=== PATIENT | male | born 1960 | race Caucasian/White ===

== ENCOUNTER 2018-05-30 08:24 | Inpatient (IN) | payer OTHER ==
[~2018-05-30] VITALS: Ht 172.7 cm; Wt 89.8 kg
--- NOTE | 2018-05-30 08:46 | NUR ---
RADIOLOGY AT BEDSIDE FOR CHEST XRAY.
--- NOTE | 2018-05-30 08:56 | NUR ---
HOME DESIGNER AT BEDSIDE FOR BLOOD DRAW.
--- NOTE | 2018-05-30 09:01 | NUR ---
DR ROY AT BEDSIDE FOR EVAL.
[2018-05-30 09:12] LABS: BASOPHILS # (AUTO) 0.1 /CMM (0.0-0.2); BASOPHILS % (AUTO) 1.2 % (0.0-2.0); HEMATOCRIT 46 % (39-51); HEMOGLOBIN 14.6 g/dL (13.5-17.5); LYMPHOCYTES # (AUTO) 1.3 /CMM (0.8-4.8); LYMPHOCYTES % (AUTO) 15.5 % (20.0-44.0); MEAN CORPUSCULAR HGB CONC 32 g/dl (31.0-36.0); MEAN CORPUSCULAR VOLUME 83 fL (80-96); MONOCYTES # (AUTO) 0.7 /CMM (0.1-1.30); MONOCYTES % (AUTO) 8.3 % (2.0-12.0); NEUTROPHILS # (AUTO) 6.2 /CMM (1.8-8.9); PLATELET COUNT (AUTO) 250 /CMM (150-450); RED BLOOD CELL COUNT(AUTO) 5.53 MIL/uL (4.5-6.0); WHITE BLOOD COUNT (AUTO) 8.4 K/uL (4.3-11.0)
[2018-05-30 09:17] LABS: CALCIUM, SERUM 8.9 mg/dL (8.5-10.1); CARBON DIOXIDE 24 mmol/L (21-32); CHLORIDE 107 mmol/L (98-107); CREATININE 1.7 mg/dL (0.6-1.3); GLUCOSE 132 mg/dL (74-106); POTASSIUM 4.9 mmol/L (3.5-5.1); SODIUM SERUM 140 mmol/L (136-145); UREA NITROGEN, BLOOD 38 mg/dL (7-18)
[2018-05-30 09:30] LABS: B-TYPE NATRIURETIC PEPTIDE 7496 PG/ML (0-125)
[2018-05-30] MEDS ORDERED: FUROSEMIDE 40 MG/4 ML VIAL IV ONE (10:00)
[2018-05-30] MEDS ORDERED: METOPROLOL TARTRATE INJ 5 MG/5 ML AMPUL IVP PRN ×2 (10:00→15:30)
--- NOTE | 2018-05-30 10:04 | NUR ---
CTPA CANCELLED DUE TO CREA 1.7, VQ SCAN WILL BE ORDERED INSTEAD, DANIEL IN CT INFORMED
[2018-05-30] MEDS ORDERED: FUROSEMIDE 40 MG/4 ML VIAL ONE (10:14)
[2018-05-30] MEDS ORDERED: METOPROLOL TARTRATE INJ 5 MG/5 ML AMPUL ONE (10:14)
[2018-05-30] MEDS ORDERED: METO-358 PO (10:26)
[2018-05-30] MEDS ORDERED: OLME20TA23 PO (10:26)
[2018-05-30] MEDS ORDERED: APIX5TAB PO (10:26)
[2018-05-30] MEDS ORDERED: ONDANSETRON HCL/PF 4 MG/2 ML VIAL IVP PRN (11:00)
[2018-05-30] MEDS ORDERED: MAGNESIUM HYDROXIDE 30 ML UDC PO PRN (11:00)
[2018-05-30] MEDS ORDERED: ACETAMINOPHEN 325 MG TABLET PO PRN (11:00)
[2018-05-30] MEDS ORDERED: Z GUARD REMEDY 2 OZ OINT TP PRN (11:00)
[2018-05-30] MEDS ORDERED: ZOLPIDEM TARTRATE 5 MG TABLET PO PRN (11:00)
[2018-05-30] MEDS ORDERED: MAG HYDROX/AL HYDROX/SIMETH 30 ML UDC PO PRN (11:00)
[2018-05-30] MEDS ORDERED: MORPHINE SULFATE INJ 2 MG/ML DISP.SYRIN IV PRN (11:00)
[2018-05-30] MEDS ORDERED: HYDROCODONE/APAP 5/325MG 1 EACH TABLET PO PRN (11:00)
[2018-05-30] MEDS ORDERED: ENOXAPARIN SODIUM 40 MG/0.4 ML DISP.SYRIN SQ SCH (11:00)
--- NOTE | 2018-05-30 11:47 | NUR ---
GOT BED 109
[2018-05-30 12:00] VITALS: BP 138/91
--- NOTE | 2018-05-30 12:02 | NUR ---
REPORT GIVEN TO LUIS. PT AWAITING TRANSFER TO FLOOR.
[2018-05-30] MEDS ORDERED: METOPROLOL SUCCINATE 50 MG TAB.SR.24H PO SCH (12:03)
[2018-05-30 12:20] VITALS: BP 138/91
--- NOTE | 2018-05-30 12:20 | NUR ---
RN NOTES RECEIVED PATIENT IN BED ALERT, AWAKE, ORIENTED X4 WITH BREATHING NORMAL, EVEN AND NORMAL. NO SOB NOTED. NO ACUTE DISTRESS NOTED. ON ROOM AIR, SATURATING WELL. TELE MONITOR REVEALS UNCONTROLLED A-FIB, WU=864. IV RAC IS PATENT AND INTACT, NO INFILTRATION NOTED. BOWEL SOUND PRESENT. PULSES PRESENT. KEPT CLEAN, DRY AND COMFORTABLE. ALL NEEDS ATTENDED. SAFETY MEASURE OBSERVED. CALL LIGHT WITH IN REACH. WILL CONT TO MONITOR.
[2018-05-30] MEDS ORDERED: HYDROMORPHONE INJ 2 MG/ML DISP.SYRIN IV PRN (12:30)
[2018-05-30] MEDS ORDERED: HYDROMORPHONE INJ 0.5 MG/0.5 ML SYRINGE IV PRN (12:30)
[2018-05-30 16:00] VITALS: BP 134/99
[2018-05-30] MEDS ORDERED: APIXABAN 5 MG TABLET PO SCH (17:00)
[2018-05-30] MEDS: APIXABAN 5 MG TABLET PO SCH (17:56)
[2018-05-30] MEDS: METOPROLOL TARTRATE 50 MG TABLET PO SCH ×2 (18:00→23:01)
--- NOTE | 2018-05-30 18:13 | NUR ---
RN NOTES PATIENT RECEIVED METOPROLOL SUCCINATE 100MG AT 1501. METOPROLOL 50MG DUE AT 1800 NOT GIVEN. WILL CONT TO MONITOR.
--- NOTE | 2018-05-30 18:58 | NUR ---
RN NOTES PATIENT ENDORSED TO NEXT SHIFT IN STABLE CONDITION FOR CONTINUITY OF CARE. NO SIGNIFICANT CHANGES NOTED. WILL CONT TO MONITOR.
--- NOTE | 2018-05-30 19:38 | NUR ---
SENIOR ANDROID DEVELOPER NOTES RECEIVED PT ON BED. A/O X 4. ROOM AIR NO RESPIRATORY DISTRESS NOTED. ON TELE MONITOR AFIB 103. IV ACCESS ON RAC 18G PATENT AND INTACT. HEAD OF BED ELEVATED. SIDE RAILS UP. CALL LIGHT WITHIN REACH. BED ALARM ON. WILL CONTINUE TO MONITOR PT CLOSELY.
[2018-05-30] MEDS: ALBUTEROL FS 2.5 MG/3 ML VIAL.NEB NEB SCH (19:56)
[2018-05-30 20:00] VITALS: BP 147/104
[2018-05-31] VITALS: BP 132/89
[2018-05-31 04:00] VITALS: BP 146/108
[2018-05-31] MEDS: METOPROLOL TARTRATE 50 MG TABLET PO SCH ×3 (05:05→16:11)
[2018-05-31 06:09] LABS: BASOPHILS # (AUTO) 0.1 /CMM (0.0-0.2); BASOPHILS % (AUTO) 1.4 % (0.0-2.0); EOSINOPHILS % (AUTO) 1.8 % (0.0-6.0); HEMATOCRIT 44 % (39-51); HEMOGLOBIN 14.5 g/dL (13.5-17.5); LYMPHOCYTES # (AUTO) 1.9 /CMM (0.8-4.8); LYMPHOCYTES % (AUTO) 25.7 % (20.0-44.0); MEAN CORPUSCULAR HGB CONC 33 g/dl (31.0-36.0); MEAN CORPUSCULAR VOLUME 82 fL (80-96); MONOCYTES # (AUTO) 0.6 /CMM (0.1-1.30); MONOCYTES % (AUTO) 8.4 % (2.0-12.0); NEUTROPHILS # (AUTO) 4.6 /CMM (1.8-8.9); NEUTROPHILS % (AUTO) 62.7 % (43.0-81.0); PLATELET COUNT (AUTO) 221 /CMM (150-450); RED BLOOD CELL COUNT(AUTO) 5.41 MIL/uL (4.5-6.0); WHITE BLOOD COUNT (AUTO) 7.3 K/uL (4.3-11.0)
[2018-05-31 06:17] LABS: CALCIUM, SERUM 8.5 mg/dL (8.5-10.1); CREATININE 1.6 mg/dL (0.6-1.3); MAGNESIUM 1.9 mg/dL (1.8-2.4); PHOSPHORUS 4.4 mg/dL (2.5-4.9); POTASSIUM 3.9 mmol/L (3.5-5.1)
--- NOTE | 2018-05-31 06:34 | NUR ---
MUSIC MIXER NOTES NO ACUTE CHANGES NOTED DURING THE SHIFT. DUE MEDS GIVEN. PROVIDED COMFORT AND SAFETY. WILL ENDORSE TO THE AM NURSE FOR CONTINUITY OF CARE.
--- NOTE | 2018-05-31 07:00 | NUR ---
BROADCAST JOURNALIST NOTES RECEIVED PT IN ROOM, AWAKE A/OX4. PT BRP, STEADY GAIT NOTED. PT STATES, "I WANT TO MAKE SURE MY BP IS CONTROLLED TODAY." PT IS ON ROOM AIR. NO S/SX OF RESP DISTRESS. PT IS NOT IN PAIN. LUNGS CLEAR TO AUSCULTATION. ON TELE AFIB 68. IV ON [facility] SL. BED IN LOCKED/LOWEST POSITION. CALL LIGHT IN REACH. WILL CONT TO MONITOR.
[2018-05-31] MEDS: ALBUTEROL FS 2.5 MG/3 ML VIAL.NEB NEB SCH ×4 (07:54→19:32)
[2018-05-31 08:00] VITALS: BP 131/85
--- NOTE | 2018-05-31 08:10 | NUR ---
DRY CANS BACK TENDER NOTES DR HERMAN ROUNDING WITH PT.
[2018-05-31] MEDS: APIXABAN 5 MG TABLET PO SCH ×2 (08:55→16:11)
[2018-05-31 12:00] VITALS: BP_SYST 123; BP_SYST 143; BP_DIAS 79; BP_DIAS 96
[2018-05-31 16:00] VITALS: BP_SYST 131; BP_DIAS 93; BP_DIAS 95
[2018-05-31] MEDS: DILTIAZEM HCL CD 120 MG PO SCH (16:10)
--- NOTE | 2018-05-31 18:43 | NUR ---
MS RN NOTES REPORT GIVEN TO PM NURSE FOR JOSEPH. PT IN ROOM WATCHING TV. NO S/SX OF DISTRESS. CALL LIGHT IN REACH. SAFETY MEASURES IN PLACE. PT UNDERSTANDS TREATMENT PLAN. ALL NEEDS ATTENDED TO.
--- NOTE | 2018-05-31 19:05 | NUR ---
MS RN NOTES PATIENT RECEIVED SITTING UP IN CHAIR NEAR BED, WATCHING TV. PATIENT IS ALERT, ORIENTED X 4 BREATHING EVEN AND UNLABORED. NOT IN ANY DISTRESS. NO COMPLAINTS OF THIS TIME. PATIENT STABLE ENDORSED BY THE MORNING RN. WILL CONTINUE TO MONITOR ACCORDINGLY
[2018-05-31 20:00] VITALS: BP 130/97
[2018-06-01 04:19] VITALS: BP 138/84
[2018-06-01 06:16] LABS: CALCIUM, SERUM 8.4 mg/dL (8.5-10.1); CREATININE 1.4 mg/dL (0.6-1.3); MAGNESIUM 1.9 mg/dL (1.8-2.4); PHOSPHORUS 4.2 mg/dL (2.5-4.9); POTASSIUM 3.9 mmol/L (3.5-5.1)
[2018-06-01 06:50] LABS: BASOPHILS # (AUTO) 0.1 /CMM (0.0-0.2); BASOPHILS % (AUTO) 1.1 % (0.0-2.0); EOSINOPHILS % (AUTO) 2.3 % (0.0-6.0); HEMATOCRIT 44 % (39-51); HEMOGLOBIN 14.5 g/dL (13.5-17.5); LYMPHOCYTES # (AUTO) 1.4 /CMM (0.8-4.8); LYMPHOCYTES % (AUTO) 20.1 % (20.0-44.0); MEAN CORPUSCULAR HGB CONC 33 g/dl (31.0-36.0); MEAN CORPUSCULAR VOLUME 82 fL (80-96); MONOCYTES # (AUTO) 0.6 /CMM (0.1-1.30); MONOCYTES % (AUTO) 8.1 % (2.0-12.0); NEUTROPHILS # (AUTO) 4.9 /CMM (1.8-8.9); NEUTROPHILS % (AUTO) 68.4 % (43.0-81.0); PLATELET COUNT (AUTO) 231 /CMM (150-450); RED BLOOD CELL COUNT(AUTO) 5.42 MIL/uL (4.5-6.0); WHITE BLOOD COUNT (AUTO) 7.2 K/uL (4.3-11.0)
--- NOTE | 2018-06-01 06:54 | NUR ---
MS RN CLOSING NOTES PATIENT STILL RESTING IN BED, ALERT, ORIENTED X 4. BREATHING EVEN AND UNLABORED. NO S/SX OF DISTRESS. CALL LIGHT IN REACH. SAFETY MEASURES IN PLACE. ALL NEEDS ATTENDED TO. WILL ENDORSE JOSEPH TO ONCOMING RN
--- NOTE | 2018-06-01 07:30 | NUR ---
MS/RN THE PATIENT IS ALERT AND ORIENTED X4. DENIES PAIN. IN ROOM AIR AND DENIES SOB. RESPIRATION REGULAR AND UNLABORED. THE PATIENT IN NO APPARENT DISTRESS. RAC G 18 PATENT AND SALINE LOCKED. BED LOW AND LOCKED. SIDE RAILS UP X3. CALL LIGHT WITHIN REACH. WILL CONTINUE TO MONITOR.
[2018-06-01] MEDS: ALBUTEROL FS 2.5 MG/3 ML VIAL.NEB NEB SCH ×4 (07:35→20:10)
[2018-06-01 08:00] VITALS: BP 130/90
[2018-06-01] MEDS: DILTIAZEM HCL CD 120 MG PO SCH (09:10)
[2018-06-01] MEDS: APIXABAN 5 MG TABLET PO SCH ×2 (09:11→16:21)
[2018-06-01] MEDS: METOPROLOL TARTRATE 50 MG TABLET PO SCH ×2 (09:11→16:21)
[2018-06-01 12:00] VITALS: BP 132/82
[2018-06-01 16:00] VITALS: BP 117/49
[2018-06-01] MEDS ORDERED: DILT120C87 PO (17:06)
[2018-06-01] MEDS ORDERED: METO50TA16 PO (17:06)
[2018-06-01] MEDS ORDERED: APIX5TAB PO (17:06)
--- NOTE | 2018-06-01 18:58 | NUR ---
MS/RN CLOSING NOTE THE PATIENT IS ALERT AND ORIENTED X4. IN ROOM AIR AND DENIES SOB. RESPIRATION REGULAR AND UNLABORED. DENIES PAIN. PATIENT IN NO APPARENT DISTRESS. RAC G 18 PATENT AND SALINE LOCKED. BED LOW AND LOCKED. SIDE RAILS UP X3. CALL LIGHT WITHIN REACH. WILL ENDORSE TO WEB FEEDER.
[2018-06-01 20:00] VITALS: BP 138/98
--- NOTE | 2018-06-01 20:45 | NUR ---
RN NOTES PATIENT PICKED UP BY HIS BROTHER. PATIENT IS ALERT AND ORIENTED X 4 WITH VITAL SIGNS WNL. REMOVED IV ACCESS. PATIENT RECEIVED AND SIGNED DISCHARGED INSTRUCTIONS WITH PRESCRIPTION. PATIENT AMBULATORY AND LEFT WITH HIS BROTHER WALKING
== END 2018-06-01 21:07 | disposition home or self-care (01) | DRG 291 ==
LOC: ER 08:25 → TELE1 11:55 → MEDSG1 05-31 15:51
PROVIDERS: ADMIT Internal Medicine; ATTEND Internal Medicine
DX: I13.0 Hypertensive heart and chronic kidney disease with heart failure and stage 1 through stage 4 chronic kidney disease, or unspecified chronic kidney disease (principal); N17.0 Acute kidney failure with tubular necrosis; I50.31 Acute diastolic (congestive) heart failure; I11.0 Hypertensive heart disease with heart failure; I48.91 Unspecified atrial fibrillation; Z79.01 Long term (current) use of anticoagulants; Z79.899 Other long term (current) drug therapy; F19.11 Other psychoactive substance abuse, in remission; E66.9 Obesity, unspecified; E78.5 Hyperlipidemia, unspecified; F41.9 Anxiety disorder, unspecified; Z68.30 Body mass index [BMI] 30.0-30.9, adult; N18.9 Chronic kidney disease, unspecified; I08.1 Rheumatic disorders of both mitral and tricuspid valves
CPT/HCPCS: 36415; 71045-TC; 78580; 80048-TC; 80061-TC; 83735-TC; 83880; 84100-TC; 84484-TC; 85025-TC; 85378-TC; 85730-TC; 93307-TC; A9537; A9567; G0378; J1940; J3490